=== PATIENT | male | born 1970 | race Caucasian/White ===

== ENCOUNTER → 2017-08-29 13:19 | Outpatient (CLI) | payer OTHER, SELFPAY ==
--- NOTE | 2017-08-29 13:19 | DT_ITS ---
This patient was seen during an EMR downtime August 29, 2017 - September 05, 2017. This patient may have a combination of paper and electronic documentation or all paper documentation. All documentation is viewable within the e-chart portion of [facility] for each patient visit.
--- NOTE | 2017-08-29 13:45 | RAD_ITS ---
STUDY: X-RAY - RIGHT CLAVICLE REASON FOR EXAM: Pain in right superior clavicular area, fall. TECHNIQUE: 2 view(s) of the clavicle. COMPARISON: None. FINDINGS: Normal clavicle. There is mild widening of the acromioclavicular articulation without elevation of the distal clavicle. Normal visualized sternoclavicular articulation. Normal visualized pulmonary apex. There is a small focus of calcific tendinitis on the AP view. There is soft tissue swelling superior to the acromioclavicular joint. RAD/Clavicle IMPRESSION: Acromioclavicular separation. Calcific tendinitis. Electronically Signed: Ziggy Yung MD at 10:39 EDT Tel , Service support ,
== END ==
PROVIDERS: Family Provider Family Medicine; PCP Family Medicine; Visit Provider Family Medicine
DX: S43.101A Unspecified dislocation of right acromioclavicular joint, initial encounter (principal); W19.XXXA Unspecified fall, initial encounter; M75.31 Calcific tendinitis of right shoulder
CPT/HCPCS: 73000

== ENCOUNTER → 2018-03-06 13:26 | Outpatient (CLI) | payer OTHER, SELFPAY ==
--- NOTE | 2018-03-06 13:33 | RAD_ITS ---
STUDY: X-RAY - RIGHT SHOULDER REASON FOR EXAM: Male, 47 years old. Pain TECHNIQUE: 4 view(s) of the shoulder. COMPARISON: None. FINDINGS: There is no evidence of fracture or dislocation. There are mild degenerative changes in the acromioclavicular joint. There is a subcentimeter calcification adjacent to the humeral head which is consistent with calcific tendinitis. There are no radiodense foreign bodies. RAD/Shoulder min 2 Views IMPRESSION: No fracture or dislocation. Mild degenerative changes. Mild calcific tendinitis. Electronically Signed: Wyatt Giordano, at 15:38 EST Tel , Service support ,
== END ==
LOC: MTLAB 13:29 → MTRAD 13:32
PROVIDERS: Family Provider Family Medicine; PCP Family Medicine; Referring Provider Family Medicine; Visit Provider Family Medicine
DX: M19.011 Primary osteoarthritis, right shoulder (principal); M75.31 Calcific tendinitis of right shoulder
CPT/HCPCS: 73030

== ENCOUNTER 2018-03-27 15:58 | Outpatient (RCR) | payer OTHER, SELFPAY ==
--- NOTE | 2018-07-04 10:10 | HP.PTEVAL_ITS ---
Patient's Visit Information NAHUN CHEN is a 47 year old M referred to Physical Therapy by Giuseppe Pandya MD with a diagnosis of RIGHT SHOULDER IMPINGEMENT. Date of Evaluation: 03/27/18 Physical Therapist: Konrad Herrera PT, Cert MDT, OCS - Visit Plan Frequency: 1-2x /Week Duration: 4 Weeks Plan: RTC/SCAPULAR STRENGTHENING,POSTURAL EX'S ,MODALITIES NEEDED - Subjective Findings: This 47 male presenst to physical therapy with with right shoulder imingement. Patient fell on shoulder caused dislocation of AC joint x-rays where mild 6 months with possible subluxation. . Seen DR 2 days later . Patient used sling for 1 week .Patient then return to DR since not getting better. Then x- rays agaun.Patient conts to have pain in right shoulder posterior joint region. Symptoms lifting OH ,across body shoulder adduction ,unable to lift weight. Patient denies parathesia/tingling. Patient able to sleep okay. Patient right shoulder pain affects QOL and job demands/houswork taks. VOCATION: [employer]. SOCIAL: - Pain Right Shoulder Pain Intensity (Out of 10): 3 Pain Intensity Range: 10 - Objective POSTURE: mild foward posture. PALAPTION: tender AC. NEURO: denies parathesia/tingling. AROM: shoulder flexion 160 degrees,[id number] degrees,ER 90 degrees,IR 70 with mild pain at ER. PROM with OP mild soreness at ER. MMT:RTC 4/5 mild soreness with supraspinatous,deltoid 4/5 except lateral deltoid 4-/5. middle traps 4-/5 ,lower traps 3+/5,serraous 4-/5 - Special Tests R Shoulder External Rotation Lag Test - RC Tear: Negative R Shoulder Supine Impingement Test - RC Tear: Negative R Shoulder Lift Off Test - Subscapular Tear: Negative R Shoulder Drop Sign - IS Test: Negative R Shoulder Neer - Impingement: Positive R Shoulder Asher Adam - Impingement: Positive R Shoulder Apprehension Test - Anterior Instability: Negative R Shoulder AC Resisted - AC: Positive - Goals Goal 1:: Patient to be Indendant with HEP Goal Time Frame: 2-4 Weeks Goal 2:: Decrease right pain by 60% or greater to mimprove function with activities above 90 degrres Goal Time Frame: 2-4 Weeks Goal 3:: Patient to increase strength RTC/deltoid 4/5 to improve function Goal Time Frame: 2-4 Weeks Goal 4:: Patient to improve QUICK shoulder dash by 5 points to improve QOL. Goal Time Frame: 2-4 Weeks Goal 5:: Pattient return to job demands and ADL'S with pain - Rehabilitation Potential Physical Therapy Diagnosis: This patient fell on right shoulder caused mild seperation right shoulder AC 6months ago with pain weakness with activity and unable to lift without pain thus benifit from skilled PT Rehabilitation Potential: Good - Anticipated Interventions Patient/Client Instruction: Educate patient on: Condition, Plan of Care For the Purpose of:: To decrease pain, To increase ROM, To improve muscle performance and motor function, To improve ability to perform ADL's, To increase tolerance to activity/condition/position, To improve ability of physical actions for home/community/work/leisure, To improve health of tissue, To decrease soft tissue restriction, To increase flexibility/ROM, To reduce risk of recurrence Therapeutic Exercise to Include: Strength training, Body mechanics, Flexibilty training, Scapular Strength/Stabilization Comment: RTC For the Purpose of:: To decrease pain, To increase ROM, To improve muscle performance and motor function, To improve ability to perform ADL's, To increase tolerance to activity/condition/position, To improve ability of physical actions for home/community/work/leisure, To improve health of tissue, To decrease soft tissue restriction, To increase flexibility/ROM, To improve safety Thank you for the opportunity to evaluate your patient. For Medicare and Medicare HMO plans, please review the plan of care and approve it. It will need to be FAXED BACK to us at [phone] for Medicare purposes. For Medicare only, by signing this I certify the plan of care. Please let me know if there are questions or concerns regarding this plan of care. Physician Signature: Date:
--- NOTE | 2018-07-04 10:10 | HP.PTDCNRP_ITS ---
HP - Discharge Summary (1) - Patient Information NAHUN CHEN was seen in my office for initial evaluation on 03/27/18. The following Plan of Care was established for this patient: Initial Frequency: 1-2x /Week Initial Duration: 4 Weeks - Anticipated Interventions Patient/Client Instruction: Educate patient on: Condition, Plan of Care For the Purpose of:: To decrease pain, To increase ROM, To improve muscle p erformance and motor function, To improve ability to perform ADL's, To increase tolerance to activity/condition/position, To improve ability of physical actions for home/community/work/leisure, To improve health of tissue, To decrease soft tissue restriction, To increase flexibility/ROM, To reduce risk of recurrence Therapeutic Exercise to Include: Strength training, Body mechanics, Flexibilty training, Scapular Strength/Stabilization For the Purpose of:: To decrease pain, To increase ROM, To improve muscle performance and motor function, To improve ability to perform ADL's, To increase tolerance to activity/condition/position, To improve ability of physical actions for home/community/work/leisure, To improve health of tissue, To decrease soft tissue restriction, To increase flexibility/ROM, To improve safety This patient was last seen in our office . Pertinent comments regarding their Physical therapy will appear below: Patient was seen for Initial PT Eval for HEP. At this point I will be discontinuing this patient from physical therapy. I would be happy to see this patient again in the future if found appropriate by the physician. Thank you! Konrad Herrera, PT, Cert MDT, OCS
== END 2018-03-27 19:00 | disposition home or self-care (01) ==
LOC: PT 15:58
PROVIDERS: Family Provider Family Medicine; PCP Family Medicine; Referring Provider Family Medicine; Visit Provider Family Medicine
DX: M25.811 Other specified joint disorders, right shoulder (principal)
CPT/HCPCS: 97110; 97161

== ENCOUNTER → 2023-03-22 | Outpatient (CLI) | payer SELFPAY ==
[2023-03-22 12:23] LABS: AST(SGOT) 19 U/L (15-37); Alanine Aminotransfer ALT/SGPT 31 U/L (16-61); Albumin, Serum 3.9 g/dL (3.2-5.0); Alkaline Phosphatase 56 U/L (45-117); Anion Gap 4 (5-15); BUN 19 mg/dL (7-18); BUN/Creat Ratio 18.4 RATIO (10-20); Calcium,Total 9.4 mg/dL (8.5-10.1); Chloride 104 mmol/L (98-107); Cholesterol 273 mg/dL (200); Creatinine, Serum 1.03 mg/dL (0.70-1.30); EST Glomerular Filtration Rate 80 mL/min (>60); Est Glom Filt Rate - Afr Amer 97 mL/min (>60); Globulin 3.8 g/dL (2.2-4.2); Glucose 144 mg/dL (74-106); High Density Lipoprotein 41 mg/dL; Protein, Total 7.7 g/dL (6.4-8.2); Sodium Level 136 mmol/L (136-145); Triglycerides 320 mg/dL; Very Low Density Lipoprotein 64 mg/dL (5-40)
== END | disposition home or self-care (01) ==
LOC: MFPLAB 09:41
PROVIDERS: Nurse Practitioner Family; PCP Family Medicine; Visit Provider Family Medicine
DX: E78.5 Hyperlipidemia, unspecified (principal); R73.01 Impaired fasting glucose
CPT/HCPCS: 36415; 80053; 80061; 83036